=== PATIENT | female | born 1940 ===

== ENCOUNTER 2017-12-17 09:03 | Emergency (ER) | payer MEDICAID, OTHER ==
--- NOTE | 2017-12-17 09:29 | UC ---
Respiratory Complaint HPI - HPI Summary HPI Summary: This is christal Bardales documenting for attending Lisseth Shelley MD. This patient is an 77 year old F presenting to [facility] with a chief complaint of an aching cough since two days ago. The patient rates the pain 4/10 in severity. Symptoms aggravated by breathing. Patient reports productive cough w/ yellow mucous, subjective fever, and diarrhea. She denies headache and nausea. The patient is concerned about PNA because of her PMHx of R sided lung CA. patient has previously had pneumonia. Last time was approximately 2 years ago. Patient reports that she has a wheeze although none currently. No fevers or chills. No nausea vomiting. No rash. Patients medication reviewed this visit to the best of our ability. She is on international medication for her cough, Dextromethorphan and Ambroxol, last taken 0300 and 0900 this morning. She reports that no one else at home is sick. She is visiting from [facility] for 2 weeks and will be here for another weeks. Pt does not have health insurance and will be given an urgent Rx. She also has brought her own azithromycin from [facility]. - History of Current Complaint Chief Complaint: UCRespiratory Stated Complaint: FEVER COUGH Time Seen by Provider: 12/17/17 09:18 Hx Obtained From: Patient Onset/Duration: Lasting Days - 2 days ago, Still Present Severity Initially: Moderate Severity Currently: Moderate Pain Intensity: 4 Pain Scale Used: 0-10 Numeric Character: Cough: Productive - yellow mucous Aggravating Factors: Deep Breaths Associated Signs And Symptoms: Positive: Fever - Allergies/Home Medications Allergies/Adverse Reactions: Allergies Allergy/AdvReac Type Severity Reaction Status Date / Time milk Allergy GI Upset Verified 12/17/17 09:20 SEAFOOD Allergy Severe SKIN RASH Uncoded 12/17/17 09:20 Home Medications: Home Medications Irbesartan [Avapro] 150 mg PO DAILY 12/17/17 [History Confirmed 12/17/17] PMH/Surg Hx/FS Hx/Imm Hx Cardiovascular History: Hypertension Respiratory History: Pneumonia Cancer History: Lung Cancer - Surgical History Surgical History: Yes Surgery Procedure, Year, and Place: SURGERY FOR RIGHT LUNG CA - Family History Known Family History: Positive: Cardiac Disease, Hypertension - Social History Lives: With Family - here visiting from [facility] Alcohol Use: None Substance Use Type: None Smoking Status (MU): Never Smoked Tobacco Review of Systems Constitutional: Fever - subjective Respiratory: Cough Cardiovascular: Other - elevated BP Gastrointestinal: Diarrhea All Other Systems Reviewed And Are Negative: Yes Physical Exam - Summary Physical Exam Summary: Vital Signs Reviewed: Yes A+Ox3, no distress - patient bilingual. Patient's daughter assist with some interpretation Eyes: Conjunctiva Clear, PUNEET. EOM intact and full ENT: Hearing grossly normal TM x 2 clear, mmoist, uvula midline, no exudate, no erythema Neck: Positive: Supple Respiratory: Positive: No respiratory distress, No accessory muscle use + CTA throughout no w/r Cardiovascular: RRR nl s1, s2 no m/r CBT <2 sec abd soft + BS nt/nd no guarding, no distension Musculoskeletal Exam: MARTINES x 4 without difficulty Strength Intact, ROM Intact Neurological: Positive: Alert, + sensation throughout Psychological: Positive: Normal Response To Family Skin: Positive: no rash, no ecchymosis Triage Information Reviewed: Yes Vital Signs: Initial Vital Signs Temp 98.6 F 12/17/17 09:14 Pulse 78 12/17/17 09:14 Resp 16 12/17/17 09:14 BP 159/86 12/17/17 09:14 Pulse Ox 98 12/17/17 09:14 UC Diagnostic Evaluation - Laboratory O2 Sat by Pulse Oximetry: 98 - Radiology Radiology Interpretation Completed By: Radiologist - CXR: NO EVIDENCE FOR ACTIVE CARDIOPULMONARY DISEASE. Dr. Shelley has reviewed this report. Respiratory Course/Dx - Course Course Of Treatment: Blood pressure noted and patient informed to follow up with PCP. Patient with a history of hypertension hasn't taken medicine today. Patient is here visiting from [facility]. Patient presents with cough for 2-3 days per a patient with a history of recurrent pneumonia last time being 2016 and was concerned morning to be checked. Patient taking [id number] medications for cough as well as mucus. Last dose was cut this morning. Patient states she thought she had a fever although was not tested. Patient with clear breath sounds and stable vital signs. Chest x-ray revealed no acute process. Patient does have upper prescription for Zithromax that she was instructed to take for her doctor should she develop cough. Advised patient to take the Zithromax. Patient given a prescription for albuterol MDI. Discussed with patient and daughter secretion precaution. Return precautions discussed. Patient comfortable in agreement with plan. - Differential Dx/Diagnosis Provider Diagnoses: bronchitis Discharge - Sign-Out/Discharge Documenting (check all that apply): Patient Departure - Discharge Plan Condition: Stable Disposition: HOME Prescriptions: Albuterol HFA INHALER* [Ventolin HFA Inhaler*] 2 puff INH Q4H PRN #1 mdi PRN Reason: wheeze Patient Education Materials: Chronic Bronchitis (ED) Referrals: No Primary Care Phys,NOPCP [Primary Care Provider] - Additional Instructions: -Stay well hydrate. Drink plenty of non-alcoholic, non-caffinated beverages - Take antibiotics exactly as prescribed until gone- it is recommended you take the medication provided by your doctor -Use your albuterol puffer - 2 puffs ever 4-6 hours for the next 3 days - then as needed -Stay well hydrated - avoid excess caffeine and all alcohol - eat regular, healthy meals - These infections are spread by oral secretions. Do not share eating or drinking utensils. Frequent hand washing is important. Clean items that may get your secretions on them such as cell phones, ipads, computer mouse, television remotes. Once you have been on antbiotics for 2 days, change your pillowcase and your toothbrush -Contact your doctor to arrange a follow-up appointment this week. Call your doctor, return here or go to the emergency department with any questions or concerns - Billing Disposition and Condition Condition: STABLE Disposition: Home
--- NOTE | 2017-12-17 10:21 | RAD ---
INDICATION: Cough productive sputum. COMPARISON: There are no prior studies available for comparison. TECHNIQUE: Dual-energy PA and lateral views of the chest were obtained. FINDINGS: The heart is within normal limits in size. Mediastinal and hilar contours appear within normal limits. The lungs are clear. No pleural effusion is present. IMPRESSION: NO EVIDENCE FOR ACTIVE CARDIOPULMONARY DISEASE.
== END 2017-12-17 10:30 | disposition home or self-care (01) ==
LOC: UCEAST 09:03
DX: J40 Bronchitis, not specified as acute or chronic (principal); I10 Essential (primary) hypertension; Z85.118 Personal history of other malignant neoplasm of bronchus and lung; Z91.011 Allergy to milk products; Z91.013 Allergy to seafood; Z79.899 Other long term (current) drug therapy
CPT/HCPCS: 71046; 99212; G0463